=== PATIENT | male | born 1950 | race Caucasian/White ===

== ENCOUNTER 2017-09-29 15:55 | Inpatient (IN) | payer MEDICARE, OTHER ==
[2017-09-29 16:42] LABS: ADD MAN DIFF? NO
[2017-09-29 16:47] LABS: WHITE BLOOD COUNT 6.6 10^3/ul (4.8-10.8)
[2017-09-29 16:47] LABS: BASOPHILS % 0.6 % (0.0-2.0); EOSINOPHILS # 0.1 10^3/ul (0.0-0.5); HEMATOCRIT 29.1 % (42.0-52.0); HEMOGLOBIN 9.2 g/dl (14.0-18.0); LYMPHOCYTES # 0.9 10^3/ul (0.8-2.9); LYMPHOCYTES % 13.6 % (15.0-51.0); MEAN CORPUSCULAR HEMOGLOBIN 26.7 pg (29.0-33.0); MEAN CORPUSCULAR HGB CONC 31.6 g/dl (32.0-37.0); MEAN CORPUSCULAR VOLUME 84.3 fl (82.0-101.0); MEAN PLATELET VOLUME 9.1 fl (7.4-10.4); MONOCYTE # 0.8 10^3/ul (0.3-0.9); MONOCYTES % 12.2 % (0.0-11.0); NEUTROPHIL # 4.7 10^3/ul (1.6-7.5); NEUTROPHILS % 71.1 % (39.0-77.0); PLATELET COUNT 192 10^3/UL (140-415); RED BLOOD COUNT 3.45 10^6/ul (4.70-6.10); RED CELL DISTRIBUTION WIDTH 19.3 % (11.5-14.5)
[2017-09-29 16:52] LABS: ADD UMIC YES; UR ASCORBIC ACID NEGATIVE (NEGATIVE); UR BILIRUBIN (Dip) NEGATIVE (NEGATIVE); UR BLOOD (Dip) 2+ mg/dL (NEGATIVE); UR CLARITY CLEAR (CLEAR); UR COLOR STRAW (YELLOW); UR GLUCOSE (Dip) NEGATIVE (NEGATIVE); UR KETONES (Dip) NEGATIVE (NEGATIVE); UR LEUKOCYTE ESTERASE (Dip) 2+ Leu/ul (NEGATIVE); UR NITRITE (Dip) NEGATIVE (NEGATIVE); UR RBC 7 /HPF (0-5); UR SPECIFIC GRAVITY (Dip) 1.005 (1.003-1.030); UR TOTAL PROTEIN (Dip) NEGATIVE (NEGATIVE); UR UROBILINOGEN (Dip) NEGATIVE (NEGATIVE); UR WBC 49 /HPF (0-5)
[2017-09-29 17:14] LABS: ANION GAP 13 (8-16); BLOOD UREA NITROGEN 29 mg/dl (7-20); CALCIUM 8.6 mg/dl (8.4-10.2); CARBON DIOXIDE 27 mmol/L (21-31); CHLORIDE 100 mmol/L (97-110); CREATININE 1.06 mg/dl (0.61-1.24); GLUCOSE 146 mg/dl (70-220); POTASSIUM 4.7 mmol/L (3.5-5.1); SODIUM 135 mmol/L (135-144)
[2017-09-29] MEDS: DIPHTH/TET/ACEL PERTUSS (ADULT) 0.5 ML VIAL IM* (17:58)
[2017-09-29] MEDS: ALBUTEROL 0.5% (NEB) 2.5 MG/0.5 ML AMP INH (18:28)
[2017-09-29] MEDS: FUROSEMIDE 40 MG INJ IV (18:35)
[2017-09-29] MEDS: HYDROmorphONE 0.5 MG/0.5 ML SYG IV (18:36)
[2017-09-29] MEDS ORDERED: ACETAMINOPHEN 325 MG TAB PO (20:00)
[2017-09-29] MEDS ORDERED: ONDANSETRON 4 MG INJ IV (20:00)
[2017-09-29] MEDS: BACITRACIN 0.9 GM OINT TOP (20:41)
[2017-09-29] MEDS ORDERED: QUETIAPINE 25 MG TAB PO (21:00)
[2017-09-29] MEDS: LORAZEPAM 2 MG INJ IV (21:04)
[2017-09-29 21:15] LABS: TROPONIN-I < 0.012 ng/ml (0.00-0.12)
[2017-09-29] MEDS ORDERED: HALOPERIDOL 5 MG INJ (21:16)
[2017-09-29] MEDS: HALOPERIDOL 5 MG INJ IM ×2 (21:32→22:39)
[2017-09-29] MEDS: DIPHENHYDRAMINE 50 MG INJ IV (22:12)
[2017-09-30] MEDS: LORAZEPAM 2 MG INJ IV ×2 (01:10→10:08)
[2017-09-30] MEDS: LORAZEPAM 2 MG INJ IM (04:38)
[2017-09-30] MEDS ORDERED: NACL 0.9% 3 ML SYG IV (06:30)
[2017-09-30] MEDS ORDERED: DOCUSATE SODIUM 100 MG CAP PO (06:30)
[2017-09-30] MEDS: FUROSEMIDE 20 MG INJ IV (09:25)
[2017-09-30] MEDS: FAMOTIDINE 20 MG INJ IV ×2 (09:25→21:42)
[2017-09-30] MEDS: ALBUTEROL/IPRATROPIUM (NEB) 3 ML AMP HHN ×3 (09:47→22:19)
[2017-09-30] MEDS ORDERED: PROVENTIL HFA 6.7GM INHALER INH (17:30)
[2017-09-30] MEDS ORDERED: ALBUTEROL/IPRATROPIUM (NEB) 3 ML AMP INH (17:30)
[2017-09-30] MEDS ORDERED: GLUCOSE GEL 15 GRAM TUBE PO ×2 (18:00)
[2017-09-30] MEDS ORDERED: DEXTROSE 50% 50 ML SYRINGE IV ×2 (18:00)
[2017-09-30] MEDS ORDERED: ALBUTEROL HFA 8 GM INHALER INH (18:00)
[2017-09-30] MEDS ORDERED: GLUCOSE GEL 15 GRAM TUBE BUCCAL (18:00)
[2017-09-30] MEDS ORDERED: GLUCAGON 1 MG INJ IM (18:00)
[2017-09-30] MEDS: FUROSEMIDE 40 MG INJ IV (18:07)
[2017-09-30] MEDS: HYDROmorphONE 0.5 MG/0.5 ML SYG IV (18:16)
[2017-09-30] MEDS: INSULIN ASPART [NOVOLOG] 3 ML PEN SC ×3 (18:24→22:52)
[2017-09-30 18:40] LABS: CREATINE KINASE 37 IU/L (23-200)
[2017-09-30 18:51] LABS: CK INDEX 3.2
[2017-09-30 18:52] LABS: CK-MB 1.18 ng/ml (0.0-2.4); TROPONIN-I < 0.012 ng/ml (0.00-0.12)
[2017-09-30] MEDS: GUAIFENESIN/DM 5ML CUP PO (21:41)
[2017-09-30] MEDS: GABAPENTIN 100 MG CAP PO (21:42)
[2017-09-30] MEDS: ATORVASTATIN 10 MG TAB PO (21:42)
[2017-10-01] MEDS: ALBUTEROL/IPRATROPIUM (NEB) 3 ML AMP HHN ×9 (00:57→20:05)
[2017-10-01] MEDS: LORAZEPAM 2 MG INJ IV ×2 (01:15→10:38)
[2017-10-01 01:49] LABS: CREATINE KINASE 38 IU/L (23-200)
[2017-10-01 01:58] LABS: CK INDEX 3.1; TROPONIN-I 0.014 ng/ml (0.00-0.12)
[2017-10-01 01:59] LABS: CK-MB 1.17 ng/ml (0.0-2.4)
[2017-10-01] MEDS: ACCU-CHEK XX (02:42)
[2017-10-01] MEDS: HYDROmorphONE 0.5 MG/0.5 ML SYG IV ×5 (02:43→22:58)
[2017-10-01] MEDS ORDERED: PENDING SANTYL ORDER FOR WOUND CARE XX (04:00)
[2017-10-01] MEDS: FUROSEMIDE 40 MG INJ IV ×2 (06:40→17:55)
[2017-10-01 07:19] LABS: CHOLESTEROL 58 mg/dl (100-200)
[2017-10-01 07:19] LABS: CHOL/HDL RATIO 2.2 RATIO; HDL CHOLESTEROL 26 mg/dl (30-78); LDL CHOLESTEROL,CALCULATED 23 mg/dl; TRIGLYCERIDES 44 mg/dl (0-149)
[2017-10-01] MEDS: INSULIN ASPART [NOVOLOG] 3 ML PEN SC ×4 (07:51→21:49)
[2017-10-01] MEDS: BENAZEPRIL 10 MG TAB PO (08:25)
[2017-10-01] MEDS: MULTIVITAMINS THERAPEUTIC TAB PO (08:25)
[2017-10-01] MEDS: GABAPENTIN 100 MG CAP PO ×2 (08:25→21:44)
[2017-10-01] MEDS: ASPIRIN (EC) 81 MG TAB PO (08:25)
[2017-10-01] MEDS: CLOPIDOGREL 75 MG TAB PO (08:25)
[2017-10-01] MEDS: TAMSULOSIN (SR) 0.4 MG CAP PO (08:26)
[2017-10-01] MEDS: FAMOTIDINE 20 MG INJ IV ×2 (08:26→21:45)
[2017-10-01] MEDS: ASCORBIC ACID 500 MG TAB PO (08:27)
[2017-10-01] MEDS: HALOPERIDOL 5 MG INJ IM (11:30)
[2017-10-01] MEDS: ATORVASTATIN 10 MG TAB PO (21:44)
[2017-10-01] MEDS: ZOLPIDEM 5 MG TAB PO (21:53)
[2017-10-02] MEDS: ALBUTEROL/IPRATROPIUM (NEB) 3 ML AMP HHN ×6 (02:00→20:18)
[2017-10-02] MEDS: GUAIFENESIN/DM 5ML CUP PO (03:08)
[2017-10-02] MEDS: HYDROmorphONE 0.5 MG/0.5 ML SYG IV ×5 (03:08→20:50)
[2017-10-02] MEDS: ACCU-CHEK XX (03:09)
[2017-10-02] MEDS: FUROSEMIDE 40 MG INJ IV ×2 (05:38→17:11)
[2017-10-02] MEDS: INSULIN ASPART [NOVOLOG] 3 ML PEN SC ×4 (07:57→20:44)
[2017-10-02] MEDS: FAMOTIDINE 20 MG INJ IV ×3 (08:01→20:53)
[2017-10-02] MEDS: TAMSULOSIN (SR) 0.4 MG CAP PO (08:04)
[2017-10-02] MEDS: GABAPENTIN 100 MG CAP PO ×2 (08:04→20:38)
[2017-10-02] MEDS: MULTIVITAMINS THERAPEUTIC TAB PO (08:04)
[2017-10-02] MEDS: CLOPIDOGREL 75 MG TAB PO (08:04)
[2017-10-02] MEDS: BENAZEPRIL 10 MG TAB PO (08:04)
[2017-10-02] MEDS: ASCORBIC ACID 500 MG TAB PO (08:05)
[2017-10-02] MEDS: ASPIRIN (EC) 81 MG TAB PO (08:05)
[2017-10-02 08:42] LABS: ADD MAN DIFF? NO
[2017-10-02 08:47] LABS: BASOPHIL # 0.1 10^3/ul (0.0-0.1); BASOPHILS % 0.6 % (0.0-2.0); EOSINOPHILS # 0.4 10^3/ul (0.0-0.5); EOSINOPHILS % 3.8 % (0.0-7.0); HEMATOCRIT 29.5 % (42.0-52.0); HEMOGLOBIN 9.2 g/dl (14.0-18.0); LYMPHOCYTES % 11.1 % (15.0-51.0); MEAN CORPUSCULAR HEMOGLOBIN 26.1 pg (29.0-33.0); MEAN CORPUSCULAR HGB CONC 31.2 g/dl (32.0-37.0); MEAN CORPUSCULAR VOLUME 83.6 fl (82.0-101.0); MONOCYTES % 10.6 % (0.0-11.0); NEUTROPHIL # 6.8 10^3/ul (1.6-7.5); NEUTROPHILS % 73.5 % (39.0-77.0); PLATELET COUNT 211 10^3/UL (140-415); RED BLOOD COUNT 3.53 10^6/ul (4.70-6.10); RED CELL DISTRIBUTION WIDTH 19.5 % (11.5-14.5)
[2017-10-02 08:47] LABS: WHITE BLOOD COUNT 9.3 10^3/ul (4.8-10.8)
[2017-10-02 09:03] LABS: ANION GAP 10 (8-16); BLOOD UREA NITROGEN 20 mg/dl (7-20); CALCIUM 8.9 mg/dl (8.4-10.2); CARBON DIOXIDE 34 mmol/L (21-31); CHLORIDE 97 mmol/L (97-110); GLUCOSE 174 mg/dl (70-220); POTASSIUM 3.9 mmol/L (3.5-5.1); SODIUM 137 mmol/L (135-144)
[2017-10-02 09:04] LABS: MAGNESIUM 1.6 mg/dl (1.7-2.5)
[2017-10-02 09:04] LABS: PHOSPHORUS 3.1 mg/dl (2.5-4.9)
[2017-10-02] MEDS: MAGNESIUM SULFATE 2 GM/50 ML 50 ML IVPB (11:14)
[2017-10-02] MEDS: LORAZEPAM 2 MG INJ IV (12:28)
[2017-10-02] MEDS: ATORVASTATIN 10 MG TAB PO (20:37)
[2017-10-02] MEDS: INSULIN GLARGINE [LANtus] 3 ML PEN SC (20:56)
[2017-10-03] MEDS: ALBUTEROL/IPRATROPIUM (NEB) 3 ML AMP HHN ×6 (00:47→20:45)
[2017-10-03] MEDS: ACCU-CHEK XX (00:50)
[2017-10-03] MEDS: HYDROmorphONE 0.5 MG/0.5 ML SYG IV ×5 (00:50→23:05)
[2017-10-03] MEDS: FUROSEMIDE 40 MG INJ IV ×2 (04:44→17:55)
[2017-10-03 07:45] LABS: ADD MAN DIFF? NO
[2017-10-03 07:50] LABS: BASOPHIL # 0.1 10^3/ul (0.0-0.1); BASOPHILS % 0.5 % (0.0-2.0); EOSINOPHILS # 0.4 10^3/ul (0.0-0.5); EOSINOPHILS % 3.4 % (0.0-7.0); HEMATOCRIT 32.8 % (42.0-52.0); HEMOGLOBIN 10.2 g/dl (14.0-18.0); LYMPHOCYTES # 1.4 10^3/ul (0.8-2.9); LYMPHOCYTES % 11.3 % (15.0-51.0); MEAN CORPUSCULAR HEMOGLOBIN 25.9 pg (29.0-33.0); MEAN CORPUSCULAR HGB CONC 31.1 g/dl (32.0-37.0); MEAN CORPUSCULAR VOLUME 83.2 fl (82.0-101.0); MEAN PLATELET VOLUME 8.7 fl (7.4-10.4); MONOCYTE # 1.2 10^3/ul (0.3-0.9); MONOCYTES % 9.6 % (0.0-11.0); NEUTROPHIL # 9.3 10^3/ul (1.6-7.5); NEUTROPHILS % 74.6 % (39.0-77.0); PLATELET COUNT 242 10^3/UL (140-415); RED BLOOD COUNT 3.94 10^6/ul (4.70-6.10); RED CELL DISTRIBUTION WIDTH 19.2 % (11.5-14.5)
[2017-10-03 07:50] LABS: WHITE BLOOD COUNT 12.4 10^3/ul (4.8-10.8)
[2017-10-03] MEDS: INSULIN ASPART [NOVOLOG] 3 ML PEN SC ×4 (07:55→21:25)
[2017-10-03 08:16] LABS: ANION GAP 10 (8-16); BLOOD UREA NITROGEN 18 mg/dl (7-20); CALCIUM 8.9 mg/dl (8.4-10.2); CARBON DIOXIDE 34 mmol/L (21-31); CHLORIDE 95 mmol/L (97-110); GLUCOSE 105 mg/dl (70-220); POTASSIUM 3.3 mmol/L (3.5-5.1); SODIUM 136 mmol/L (135-144)
[2017-10-03 08:19] LABS: MAGNESIUM 1.8 mg/dl (1.7-2.5)
[2017-10-03 08:19] LABS: PHOSPHORUS 3.3 mg/dl (2.5-4.9)
[2017-10-03] MEDS: ASPIRIN (EC) 81 MG TAB PO (08:27)
[2017-10-03] MEDS: BENAZEPRIL 10 MG TAB PO (08:27)
[2017-10-03] MEDS: TAMSULOSIN (SR) 0.4 MG CAP PO (08:27)
[2017-10-03] MEDS: CLOPIDOGREL 75 MG TAB PO (08:27)
[2017-10-03] MEDS: MULTIVITAMINS THERAPEUTIC TAB PO (08:28)
[2017-10-03] MEDS: ASCORBIC ACID 500 MG TAB PO (08:28)
[2017-10-03] MEDS: GABAPENTIN 100 MG CAP PO ×2 (08:28→21:07)
[2017-10-03] MEDS: POTASSIUM CHLORIDE (SR) 20 MEQ TAB PO (21:07)
[2017-10-03] MEDS: FAMOTIDINE 20 MG INJ IV (21:07)
[2017-10-03] MEDS: ZOLPIDEM 5 MG TAB PO (21:07)
[2017-10-03] MEDS: POTASSIUM CHLORIDE (SR) 10 MEQ TAB PO (21:07)
[2017-10-03] MEDS: ATORVASTATIN 10 MG TAB PO (21:08)
[2017-10-03] MEDS: INSULIN GLARGINE [LANtus] 3 ML PEN SC (21:24)
[2017-10-03] MEDS: MAGNESIUM SULFATE 2 GM/50 ML 50 ML IVPB (23:05)
[2017-10-04] MEDS: ALBUTEROL/IPRATROPIUM (NEB) 3 ML AMP HHN ×7 (01:00→21:45)
[2017-10-04] MEDS: ACCU-CHEK XX (02:00)
[2017-10-04] MEDS: LORAZEPAM 2 MG INJ IV ×2 (04:05→15:49)
[2017-10-04] MEDS: FUROSEMIDE 40 MG INJ IV ×2 (05:35→18:39)
[2017-10-04] MEDS: INSULIN ASPART [NOVOLOG] 3 ML PEN SC ×4 (07:55→20:31)
[2017-10-04 08:24] LABS: ADD MAN DIFF? NO
[2017-10-04 08:28] LABS: BASOPHIL # 0.1 10^3/ul (0.0-0.1); BASOPHILS % 0.6 % (0.0-2.0); EOSINOPHILS # 0.5 10^3/ul (0.0-0.5); EOSINOPHILS % 4.1 % (0.0-7.0); HEMATOCRIT 34.2 % (42.0-52.0); HEMOGLOBIN 10.6 g/dl (14.0-18.0); LYMPHOCYTES # 1.5 10^3/ul (0.8-2.9); LYMPHOCYTES % 11.5 % (15.0-51.0); MEAN CORPUSCULAR HEMOGLOBIN 26.2 pg (29.0-33.0); MEAN CORPUSCULAR VOLUME 84.4 fl (82.0-101.0); MEAN PLATELET VOLUME 8.8 fl (7.4-10.4); MONOCYTE # 1.3 10^3/ul (0.3-0.9); MONOCYTES % 10.3 % (0.0-11.0); NEUTROPHIL # 9.5 10^3/ul (1.6-7.5); PLATELET COUNT 244 10^3/UL (140-415); RED BLOOD COUNT 4.05 10^6/ul (4.70-6.10); RED CELL DISTRIBUTION WIDTH 19.3 % (11.5-14.5)
[2017-10-04 08:45] LABS: PHOSPHORUS 3.4 mg/dl (2.5-4.9)
[2017-10-04 08:45] LABS: MAGNESIUM 2.2 mg/dl (1.7-2.5)
[2017-10-04 08:47] LABS: ANION GAP 14 (8-16); BLOOD UREA NITROGEN 22 mg/dl (7-20); CALCIUM 8.4 mg/dl (8.4-10.2); CARBON DIOXIDE 32 mmol/L (21-31); CHLORIDE 98 mmol/L (97-110); CREATININE 1.08 mg/dl (0.61-1.24); GLUCOSE 144 mg/dl (70-220); POTASSIUM 3.8 mmol/L (3.5-5.1); SODIUM 140 mmol/L (135-144)
[2017-10-04] MEDS: POTASSIUM CHLORIDE (SR) 10 MEQ TAB PO ×3 (08:57→20:23)
[2017-10-04] MEDS: GABAPENTIN 100 MG CAP PO ×3 (08:57→20:23)
[2017-10-04] MEDS: FAMOTIDINE 20 MG INJ IV ×2 (08:57→20:23)
[2017-10-04] MEDS: MULTIVITAMINS THERAPEUTIC TAB PO ×2 (08:58→09:00)
[2017-10-04] MEDS: ASCORBIC ACID 500 MG TAB PO ×2 (08:58→09:00)
[2017-10-04] MEDS: MAGNESIUM OXIDE 400 MG TAB PO ×2 (08:58→09:00)
[2017-10-04] MEDS: BENAZEPRIL 10 MG TAB PO ×2 (08:58→09:00)
[2017-10-04] MEDS: ASPIRIN (EC) 81 MG TAB PO ×2 (08:58→09:00)
[2017-10-04] MEDS: TAMSULOSIN (SR) 0.4 MG CAP PO ×2 (08:59→09:00)
[2017-10-04] MEDS: CLOPIDOGREL 75 MG TAB PO ×2 (08:59→09:00)
[2017-10-04] MEDS: HYDROmorphONE 0.5 MG/0.5 ML SYG IV ×4 (10:00→22:55)
[2017-10-04] MEDS ORDERED: LEVOFLOXACIN 500MG/D5W (PMX) 100 ML IVPB (15:30)
[2017-10-04] MEDS: CEFTRIAXONE 1 GM/50 ML (PMX) 50 ML IVPB (16:48)
[2017-10-04] MEDS: ATORVASTATIN 10 MG TAB PO (20:23)
[2017-10-04] MEDS: INSULIN GLARGINE [LANtus] 3 ML PEN SC (20:30)
[2017-10-05] MEDS: ALBUTEROL/IPRATROPIUM (NEB) 3 ML AMP HHN ×6 (00:27→20:47)
[2017-10-05] MEDS: ACCU-CHEK XX (02:00)
[2017-10-05] MEDS: HYDROmorphONE 0.5 MG/0.5 ML SYG IV ×3 (05:24→19:40)
[2017-10-05] MEDS: FUROSEMIDE 40 MG INJ IV ×2 (05:25→18:04)
[2017-10-05 08:16] LABS: ADD MAN DIFF? NO
[2017-10-05 08:18] LABS: WHITE BLOOD COUNT 12.5 10^3/ul (4.8-10.8)
[2017-10-05 08:18] LABS: BASOPHIL # 0.1 10^3/ul (0.0-0.1); BASOPHILS % 0.6 % (0.0-2.0); EOSINOPHILS # 0.7 10^3/ul (0.0-0.5); EOSINOPHILS % 5.2 % (0.0-7.0); HEMOGLOBIN 10.6 g/dl (14.0-18.0); LYMPHOCYTES # 1.6 10^3/ul (0.8-2.9); MEAN CORPUSCULAR HEMOGLOBIN 26.2 pg (29.0-33.0); MEAN CORPUSCULAR HGB CONC 31.2 g/dl (32.0-37.0); MEAN PLATELET VOLUME 8.5 fl (7.4-10.4); MONOCYTES % 7.9 % (0.0-11.0); NEUTROPHIL # 9.1 10^3/ul (1.6-7.5); NEUTROPHILS % 72.7 % (39.0-77.0); PLATELET COUNT 223 10^3/UL (140-415); RED BLOOD COUNT 4.05 10^6/ul (4.70-6.10); RED CELL DISTRIBUTION WIDTH 19.3 % (11.5-14.5)
[2017-10-05] MEDS: INSULIN ASPART [NOVOLOG] 3 ML PEN SC ×4 (08:49→20:36)
[2017-10-05] MEDS: TAMSULOSIN (SR) 0.4 MG CAP PO (09:30)
[2017-10-05] MEDS: ASCORBIC ACID 500 MG TAB PO (09:30)
[2017-10-05] MEDS: MAGNESIUM OXIDE 400 MG TAB PO (09:31)
[2017-10-05] MEDS: BENAZEPRIL 10 MG TAB PO (09:31)
[2017-10-05] MEDS: GABAPENTIN 100 MG CAP PO ×2 (09:31→20:24)
[2017-10-05] MEDS: CLOPIDOGREL 75 MG TAB PO (09:32)
[2017-10-05] MEDS: MULTIVITAMINS THERAPEUTIC TAB PO (09:32)
[2017-10-05] MEDS: POTASSIUM CHLORIDE (SR) 10 MEQ TAB PO ×2 (09:32→20:27)
[2017-10-05] MEDS: ASPIRIN (EC) 81 MG TAB PO (09:32)
[2017-10-05] MEDS: FAMOTIDINE 20 MG INJ IV ×2 (09:32→20:27)
[2017-10-05] MEDS: SPIRONOLACTONE 25 MG TAB PO (09:33)
[2017-10-05] MEDS: COLLAGENASE 30 GM TUBE TOP (09:39)
[2017-10-05] MEDS: CEFTRIAXONE 1 GM/50 ML (PMX) 50 ML IVPB (17:57)
[2017-10-05] MEDS: ATORVASTATIN 10 MG TAB PO (20:24)
[2017-10-05] MEDS: ZOLPIDEM 5 MG TAB PO (20:24)
[2017-10-05] MEDS: INSULIN GLARGINE [LANtus] 3 ML PEN SC (20:36)
[2017-10-05] MEDS: LORAZEPAM 2 MG INJ IV ×2 (22:33→23:32)
[2017-10-05] MEDS ORDERED: LORAZEPAM 2 MG INJ IV (23:00)
[2017-10-06] MEDS: ALBUTEROL/IPRATROPIUM (NEB) 3 ML AMP HHN ×6 (01:00→21:00)
[2017-10-06] MEDS: ACCU-CHEK XX (02:00)
[2017-10-06] MEDS: HYDROmorphONE 0.5 MG/0.5 ML SYG IV ×4 (02:04→23:33)
[2017-10-06] MEDS: FUROSEMIDE 40 MG INJ IV ×2 (05:56→17:45)
[2017-10-06] MEDS: INSULIN ASPART [NOVOLOG] 3 ML PEN SC ×4 (07:55→20:52)
[2017-10-06] MEDS: SPIRONOLACTONE 25 MG TAB PO (09:00)
[2017-10-06] MEDS: BENAZEPRIL 10 MG TAB PO (09:00)
[2017-10-06] MEDS: MULTIVITAMINS THERAPEUTIC TAB PO (09:23)
[2017-10-06] MEDS: FAMOTIDINE 20 MG INJ IV ×2 (09:23→20:17)
[2017-10-06] MEDS: GABAPENTIN 100 MG CAP PO ×2 (09:24→20:16)
[2017-10-06] MEDS: ASPIRIN (EC) 81 MG TAB PO (09:24)
[2017-10-06] MEDS: ASCORBIC ACID 500 MG TAB PO (09:24)
[2017-10-06] MEDS: MAGNESIUM OXIDE 400 MG TAB PO (09:24)
[2017-10-06] MEDS: CLOPIDOGREL 75 MG TAB PO (09:24)
[2017-10-06] MEDS: TAMSULOSIN (SR) 0.4 MG CAP PO (09:24)
[2017-10-06] MEDS: POTASSIUM CHLORIDE (SR) 10 MEQ TAB PO ×2 (09:30→20:16)
[2017-10-06] MEDS: COLLAGENASE 30 GM TUBE TOP (09:35)
[2017-10-06] MEDS: CEFTRIAXONE 1 GM/50 ML (PMX) 50 ML IVPB (17:46)
[2017-10-06] MEDS: ATORVASTATIN 10 MG TAB PO (20:16)
[2017-10-06] MEDS: ZOLPIDEM 5 MG TAB PO (20:16)
[2017-10-06] MEDS: INSULIN GLARGINE [LANtus] 3 ML PEN SC (20:51)
[2017-10-07] MEDS: ALBUTEROL/IPRATROPIUM (NEB) 3 ML AMP HHN ×6 (01:00→20:41)
[2017-10-07] MEDS: ACCU-CHEK XX (02:00)
[2017-10-07] MEDS: HYDROmorphONE 0.5 MG/0.5 ML SYG IV ×4 (04:19→20:53)
[2017-10-07] MEDS: FUROSEMIDE 40 MG INJ IV ×2 (06:00→17:15)
[2017-10-07 07:25] LABS: ADD MAN DIFF? NO
[2017-10-07 07:28] LABS: WHITE BLOOD COUNT 14.5 10^3/ul (4.8-10.8)
[2017-10-07 07:28] LABS: BASOPHIL # 0.1 10^3/ul (0.0-0.1); BASOPHILS % 0.7 % (0.0-2.0); EOSINOPHILS # 0.6 10^3/ul (0.0-0.5); HEMATOCRIT 31.4 % (42.0-52.0); LYMPHOCYTES # 1.9 10^3/ul (0.8-2.9); MEAN CORPUSCULAR HEMOGLOBIN 26.6 pg (29.0-33.0); MEAN CORPUSCULAR HGB CONC 31.8 g/dl (32.0-37.0); MEAN CORPUSCULAR VOLUME 83.5 fl (82.0-101.0); MEAN PLATELET VOLUME 8.8 fl (7.4-10.4); MONOCYTE # 1.3 10^3/ul (0.3-0.9); MONOCYTES % 8.7 % (0.0-11.0); NEUTROPHIL # 10.6 10^3/ul (1.6-7.5); NEUTROPHILS % 72.8 % (39.0-77.0); PLATELET COUNT 200 10^3/UL (140-415); RED BLOOD COUNT 3.76 10^6/ul (4.70-6.10); RED CELL DISTRIBUTION WIDTH 19.2 % (11.5-14.5)
[2017-10-07 07:54] LABS: ALANINE AMINOTRANSFERASE 40 IU/L (13-69); ALBUMIN 2.7 g/dl (3.3-4.9); ALBUMIN/GLOBULIN RATIO 0.79; ALKALINE PHOSPHATASE 160 IU/L (42-121); ANION GAP 13 (8-16); ASPARTATE AMINO TRANSFERASE 22 IU/L (15-46); BLOOD UREA NITROGEN 27 mg/dl (7-20); CALCIUM 8.2 mg/dl (8.4-10.2); CARBON DIOXIDE 28 mmol/L (21-31); CHLORIDE 99 mmol/L (97-110); CREATININE 1.06 mg/dl (0.61-1.24); GLUCOSE 129 mg/dl (70-220); POTASSIUM 4.4 mmol/L (3.5-5.1); SODIUM 136 mmol/L (135-144); TOTAL PROTEIN 6.1 g/dl (6.1-8.1)
[2017-10-07] MEDS: INSULIN ASPART [NOVOLOG] 3 ML PEN SC ×4 (07:55→20:55)
[2017-10-07] MEDS: BENAZEPRIL 10 MG TAB PO (09:00)
[2017-10-07] MEDS: CLOPIDOGREL 75 MG TAB PO (09:43)
[2017-10-07] MEDS: MULTIVITAMINS THERAPEUTIC TAB PO (09:43)
[2017-10-07] MEDS: ASCORBIC ACID 500 MG TAB PO (09:43)
[2017-10-07] MEDS: FAMOTIDINE 20 MG INJ IV ×2 (09:43→20:55)
[2017-10-07] MEDS: MAGNESIUM OXIDE 400 MG TAB PO (09:44)
[2017-10-07] MEDS: POTASSIUM CHLORIDE (SR) 10 MEQ TAB PO ×2 (09:44→20:55)
[2017-10-07] MEDS: ASPIRIN (EC) 81 MG TAB PO (09:44)
[2017-10-07] MEDS: SPIRONOLACTONE 25 MG TAB PO (09:44)
[2017-10-07] MEDS: GABAPENTIN 100 MG CAP PO ×2 (09:44→20:55)
[2017-10-07] MEDS: TAMSULOSIN (SR) 0.4 MG CAP PO (09:44)
[2017-10-07] MEDS: COLLAGENASE 30 GM TUBE TOP (09:47)
[2017-10-07 12:29] LABS: ADD UMIC YES; UR ASCORBIC ACID 40 mg/dL (NEGATIVE); UR BACTERIA FEW /HPF (NONE SEEN); UR BILIRUBIN (Dip) NEGATIVE (NEGATIVE); UR BLOOD (Dip) 2+ mg/dL (NEGATIVE); UR BUDDING YEAST MANY /HPF (NONE SEEN); UR CLARITY SLIGHTLY CLOUDY (CLEAR); UR COLOR YELLOW (YELLOW); UR GLUCOSE (Dip) NEGATIVE (NEGATIVE); UR KETONES (Dip) NEGATIVE (NEGATIVE); UR LEUKOCYTE ESTERASE (Dip) 3+ Leu/ul (NEGATIVE); UR NITRITE (Dip) NEGATIVE (NEGATIVE); UR RBC 54 /HPF (0-5); UR SPECIFIC GRAVITY (Dip) 1.009 (1.003-1.030); UR TOTAL PROTEIN (Dip) 1+ mg/dl (NEGATIVE); UR UROBILINOGEN (Dip) NEGATIVE (NEGATIVE); UR WBC 48 /HPF (0-5)
[2017-10-07] MEDS: CEFTRIAXONE 1 GM/50 ML (PMX) 50 ML IVPB (16:22)
[2017-10-07] MEDS: INSULIN GLARGINE [LANtus] 3 ML PEN SC (20:16)
[2017-10-07] MEDS: ZOLPIDEM 5 MG TAB PO (20:55)
[2017-10-07] MEDS: ATORVASTATIN 10 MG TAB PO (20:55)
[2017-10-08] MEDS: ALBUTEROL/IPRATROPIUM (NEB) 3 ML AMP HHN ×6 (01:00→21:00)
[2017-10-08] MEDS: ACCU-CHEK XX (02:00)
[2017-10-08] MEDS: HYDROmorphONE 0.5 MG/0.5 ML SYG IV ×3 (04:14→13:49)
[2017-10-08] MEDS: ACETAMINOPHEN 325 MG TAB PO ×2 (05:27→16:40)
[2017-10-08] MEDS: FUROSEMIDE 40 MG INJ IV (05:29)
[2017-10-08] MEDS: INSULIN ASPART [NOVOLOG] 3 ML PEN SC ×4 (07:49→20:48)
[2017-10-08] MEDS: FAMOTIDINE 20 MG INJ IV ×2 (08:36→20:51)
[2017-10-08] MEDS: GABAPENTIN 100 MG CAP PO ×2 (08:37→20:50)
[2017-10-08] MEDS: MULTIVITAMINS THERAPEUTIC TAB PO (08:37)
[2017-10-08] MEDS: TAMSULOSIN (SR) 0.4 MG CAP PO (08:37)
[2017-10-08] MEDS: MAGNESIUM OXIDE 400 MG TAB PO (08:37)
[2017-10-08] MEDS: CLOPIDOGREL 75 MG TAB PO (08:37)
[2017-10-08] MEDS: ASCORBIC ACID 500 MG TAB PO (08:37)
[2017-10-08] MEDS: ASPIRIN (EC) 81 MG TAB PO (08:38)
[2017-10-08] MEDS: POTASSIUM CHLORIDE (SR) 10 MEQ TAB PO ×2 (08:38→20:50)
[2017-10-08] MEDS: BENAZEPRIL 10 MG TAB PO (08:39)
[2017-10-08] MEDS: COLLAGENASE 30 GM TUBE TOP (08:40)
[2017-10-08] MEDS: SPIRONOLACTONE 25 MG TAB PO (08:40)
[2017-10-08] MEDS: FUROSEMIDE 40 MG TAB PO (08:42)
[2017-10-08] MEDS: CEFTRIAXONE 1 GM/50 ML (PMX) 50 ML IVPB (16:22)
[2017-10-08] MEDS: ZOLPIDEM 5 MG TAB PO (20:50)
[2017-10-08] MEDS: ATORVASTATIN 10 MG TAB PO (20:51)
[2017-10-08] MEDS: INSULIN GLARGINE [LANtus] 3 ML PEN SC (21:01)
[2017-10-09] MEDS: ALBUTEROL/IPRATROPIUM (NEB) 3 ML AMP HHN ×6 (00:23→21:00)
[2017-10-09] MEDS: ACCU-CHEK XX (02:00)
[2017-10-09] MEDS: INSULIN ASPART [NOVOLOG] 3 ML PEN SC ×4 (07:35→20:41)
[2017-10-09] MEDS: ASPIRIN (EC) 81 MG TAB PO (08:28)
[2017-10-09] MEDS: MULTIVITAMINS THERAPEUTIC TAB PO (08:28)
[2017-10-09] MEDS: FAMOTIDINE 20 MG INJ IV ×2 (08:28→20:37)
[2017-10-09] MEDS: GABAPENTIN 100 MG CAP PO ×2 (08:28→20:37)
[2017-10-09] MEDS: ASCORBIC ACID 500 MG TAB PO (08:29)
[2017-10-09] MEDS: TAMSULOSIN (SR) 0.4 MG CAP PO (08:29)
[2017-10-09] MEDS: CLOPIDOGREL 75 MG TAB PO (08:30)
[2017-10-09] MEDS: BENAZEPRIL 10 MG TAB PO (08:30)
[2017-10-09 08:31] LABS: ANION GAP 13 (8-16); BLOOD UREA NITROGEN 26 mg/dl (7-20); CALCIUM 8.6 mg/dl (8.4-10.2); CARBON DIOXIDE 27 mmol/L (21-31); CHLORIDE 99 mmol/L (97-110); CREATININE 1.35 mg/dl (0.61-1.24); GLUCOSE 104 mg/dl (70-220); SODIUM 134 mmol/L (135-144)
[2017-10-09] MEDS: SPIRONOLACTONE 25 MG TAB PO (08:31)
[2017-10-09] MEDS: POTASSIUM CHLORIDE (SR) 10 MEQ TAB PO ×2 (08:31→20:36)
[2017-10-09] MEDS: MAGNESIUM OXIDE 400 MG TAB PO (08:31)
[2017-10-09] MEDS: FUROSEMIDE 40 MG TAB PO (08:31)
[2017-10-09] MEDS: COLLAGENASE 30 GM TUBE TOP (08:32)
[2017-10-09 08:46] LABS: POTASSIUM 5.2 mmol/L (3.5-5.1)
[2017-10-09] MEDS: CEFTRIAXONE 1 GM/50 ML (PMX) 50 ML IVPB (15:53)
[2017-10-09] MEDS: ACETAMINOPHEN 325 MG TAB PO (16:21)
[2017-10-09] MEDS: ZOLPIDEM 5 MG TAB PO ×2 (17:56→23:38)
[2017-10-09] MEDS: ATORVASTATIN 10 MG TAB PO (20:37)
[2017-10-09] MEDS: INSULIN GLARGINE [LANtus] 3 ML PEN SC (20:44)
[2017-10-09] MEDS: LORAZEPAM 2 MG INJ IV (22:23)
[2017-10-10] MEDS: ALBUTEROL/IPRATROPIUM (NEB) 3 ML AMP HHN ×6 (01:00→20:42)
[2017-10-10] MEDS: ACCU-CHEK XX (02:00)
[2017-10-10] MEDS: INSULIN ASPART [NOVOLOG] 3 ML PEN SC ×4 (07:55→20:35)
[2017-10-10] MEDS: FAMOTIDINE 20 MG INJ IV ×2 (09:21→20:37)
[2017-10-10] MEDS: CLOPIDOGREL 75 MG TAB PO (09:23)
[2017-10-10] MEDS: ASPIRIN (EC) 81 MG TAB PO (09:23)
[2017-10-10] MEDS: MULTIVITAMINS THERAPEUTIC TAB PO (09:23)
[2017-10-10] MEDS: SPIRONOLACTONE 25 MG TAB PO (09:24)
[2017-10-10] MEDS: GABAPENTIN 100 MG CAP PO ×2 (09:24→20:36)
[2017-10-10] MEDS: BENAZEPRIL 10 MG TAB PO (09:24)
[2017-10-10] MEDS: TAMSULOSIN (SR) 0.4 MG CAP PO (09:24)
[2017-10-10] MEDS: MAGNESIUM OXIDE 400 MG TAB PO (09:24)
[2017-10-10] MEDS: FUROSEMIDE 40 MG TAB PO (09:24)
[2017-10-10] MEDS: ASCORBIC ACID 500 MG TAB PO (09:29)
[2017-10-10] MEDS: COLLAGENASE 30 GM TUBE TOP (09:30)
[2017-10-10] MEDS: LORAZEPAM 2 MG INJ IV ×3 (09:39→21:14)
[2017-10-10] MEDS ORDERED: LORAZEPAM 2 MG INJ IM ×2 (11:00→11:13)
[2017-10-10] MEDS: FLUCONAZOLE 100 MG TAB PO ×2 (11:00→17:38)
[2017-10-10 13:38] LABS: ANION GAP 12 (8-16); BLOOD UREA NITROGEN 29 mg/dl (7-20); CALCIUM 8.8 mg/dl (8.4-10.2); CARBON DIOXIDE 25 mmol/L (21-31); CHLORIDE 100 mmol/L (97-110); CREATININE 1.18 mg/dl (0.61-1.24); GLUCOSE 219 mg/dl (70-220); POTASSIUM 4.9 mmol/L (3.5-5.1); SODIUM 132 mmol/L (135-144)
[2017-10-10] MEDS: ACETAMINOPHEN 325 MG TAB PO (18:30)
[2017-10-10] MEDS: INSULIN GLARGINE [LANtus] 3 ML PEN SC (20:34)
[2017-10-10] MEDS: ZOLPIDEM 5 MG TAB PO (20:36)
[2017-10-10] MEDS: ATORVASTATIN 10 MG TAB PO (20:36)
[2017-10-11] MEDS: ALBUTEROL/IPRATROPIUM (NEB) 3 ML AMP HHN ×6 (00:41→21:00)
[2017-10-11] MEDS: ACCU-CHEK XX (01:50)
[2017-10-11] MEDS: INSULIN ASPART [NOVOLOG] 3 ML PEN SC ×4 (07:55→20:30)
[2017-10-11] MEDS: TAMSULOSIN (SR) 0.4 MG CAP PO (09:33)
[2017-10-11] MEDS: LORAZEPAM 2 MG INJ IV ×2 (09:33→17:51)
[2017-10-11] MEDS: FAMOTIDINE 20 MG INJ IV ×2 (09:33→20:27)
[2017-10-11] MEDS: FLUCONAZOLE 100 MG TAB PO (09:33)
[2017-10-11] MEDS: FUROSEMIDE 40 MG TAB PO (09:34)
[2017-10-11] MEDS: BENAZEPRIL 10 MG TAB PO (09:34)
[2017-10-11] MEDS: ASCORBIC ACID 500 MG TAB PO (09:37)
[2017-10-11] MEDS: SPIRONOLACTONE 25 MG TAB PO (09:37)
[2017-10-11] MEDS: CLOPIDOGREL 75 MG TAB PO (09:37)
[2017-10-11] MEDS: MULTIVITAMINS THERAPEUTIC TAB PO (09:37)
[2017-10-11] MEDS: ASPIRIN (EC) 81 MG TAB PO (09:37)
[2017-10-11] MEDS: GABAPENTIN 100 MG CAP PO ×2 (09:37→20:27)
[2017-10-11] MEDS: COLLAGENASE 30 GM TUBE TOP (09:38)
[2017-10-11] MEDS: ACETAMINOPHEN 325 MG TAB PO (20:27)
[2017-10-11] MEDS: ATORVASTATIN 10 MG TAB PO (20:27)
[2017-10-11] MEDS: ZOLPIDEM 5 MG TAB PO (20:27)
[2017-10-11] MEDS: INSULIN GLARGINE [LANtus] 3 ML PEN SC (20:29)
[2017-10-12] MEDS: ALBUTEROL/IPRATROPIUM (NEB) 3 ML AMP HHN ×8 (00:12→20:05)
[2017-10-12] MEDS: ACCU-CHEK XX (02:00)
[2017-10-12] MEDS: BENAZEPRIL 10 MG TAB PO (08:26)
[2017-10-12] MEDS: ASCORBIC ACID 500 MG TAB PO (08:27)
[2017-10-12] MEDS: FUROSEMIDE 40 MG TAB PO (08:27)
[2017-10-12] MEDS: GABAPENTIN 100 MG CAP PO ×2 (08:27→20:10)
[2017-10-12] MEDS: ASPIRIN (EC) 81 MG TAB PO (08:28)
[2017-10-12] MEDS: MULTIVITAMINS THERAPEUTIC TAB PO (08:28)
[2017-10-12] MEDS: FAMOTIDINE 20 MG INJ IV ×2 (08:28→20:11)
[2017-10-12] MEDS: TAMSULOSIN (SR) 0.4 MG CAP PO (08:28)
[2017-10-12] MEDS: SPIRONOLACTONE 25 MG TAB PO (08:28)
[2017-10-12] MEDS: CLOPIDOGREL 75 MG TAB PO (08:28)
[2017-10-12] MEDS: COLLAGENASE 30 GM TUBE TOP (08:29)
[2017-10-12] MEDS: INSULIN ASPART [NOVOLOG] 3 ML PEN SC ×4 (08:33→20:20)
[2017-10-12] MEDS: LORAZEPAM 2 MG INJ IV (13:03)
[2017-10-12 13:32] LABS: ADD MAN DIFF? NO
[2017-10-12 13:35] LABS: ABNORMAL IP MESSAGE 1; BASOPHIL # 0.1 10^3/ul (0.0-0.1); BASOPHILS % 0.8 % (0.0-2.0); EOSINOPHILS # 0.3 10^3/ul (0.0-0.5); EOSINOPHILS % 2.2 % (0.0-7.0); HEMATOCRIT 35.2 % (42.0-52.0); HEMOGLOBIN 11.1 g/dl (14.0-18.0); LYMPHOCYTES % 12.8 % (15.0-51.0); MEAN CORPUSCULAR HEMOGLOBIN 26.2 pg (29.0-33.0); MEAN CORPUSCULAR HGB CONC 31.5 g/dl (32.0-37.0); MEAN PLATELET VOLUME 8.4 fl (7.4-10.4); MONOCYTE # 1.5 10^3/ul (0.3-0.9); NEUTROPHIL # 11.2 10^3/ul (1.6-7.5); PLATELET COUNT 197 10^3/UL (140-415); POSITIVE DIFF @See below; RED BLOOD COUNT 4.24 10^6/ul (4.70-6.10); RED CELL DISTRIBUTION WIDTH 19.4 % (11.5-14.5)
[2017-10-12 13:35] LABS: WHITE BLOOD COUNT 15.3 10^3/ul (4.8-10.8)
[2017-10-12] MEDS ORDERED: HYDROmorphONE 1 MG/ML SYG IV (16:15)
[2017-10-12] MEDS: HYDROmorphONE 1 MG/ML SYG IV (16:27)
[2017-10-12] MEDS ORDERED: HYDROmorphONE 0.5 MG/0.5 ML SYG IV (16:30)
[2017-10-12] MEDS: ATORVASTATIN 10 MG TAB PO (20:09)
[2017-10-12] MEDS: traMADol 50 MG TAB PO (20:10)
[2017-10-12] MEDS: INSULIN GLARGINE [LANtus] 3 ML PEN SC (20:13)
[2017-10-12] MEDS: ZOLPIDEM 5 MG TAB PO (22:54)
[2017-10-13] MEDS: ACCU-CHEK XX (01:13)
[2017-10-13] MEDS: traMADol 50 MG TAB PO ×2 (03:17→09:26)
[2017-10-13] MEDS: NITROGLYCERIN (SL) 0.4 MG TAB SL (04:10)
[2017-10-13] MEDS: ONDANSETRON 4 MG INJ IV (04:33)
[2017-10-13] MEDS: INSULIN ASPART [NOVOLOG] 3 ML PEN SC ×2 (08:01→12:21)
[2017-10-13] MEDS: FAMOTIDINE 20 MG INJ IV (08:03)
[2017-10-13] MEDS: BENAZEPRIL 10 MG TAB PO (08:04)
[2017-10-13] MEDS: ASPIRIN (EC) 81 MG TAB PO (08:04)
[2017-10-13] MEDS: SPIRONOLACTONE 25 MG TAB PO (08:04)
[2017-10-13] MEDS: TAMSULOSIN (SR) 0.4 MG CAP PO (08:04)
[2017-10-13] MEDS: GABAPENTIN 100 MG CAP PO (08:04)
[2017-10-13] MEDS: CLOPIDOGREL 75 MG TAB PO (08:04)
[2017-10-13] MEDS: MULTIVITAMINS THERAPEUTIC TAB PO (08:04)
[2017-10-13] MEDS: ASCORBIC ACID 500 MG TAB PO (08:05)
[2017-10-13] MEDS: FLUCONAZOLE 100 MG TAB PO (08:05)
[2017-10-13] MEDS: FUROSEMIDE 40 MG TAB PO (08:05)
[2017-10-13] MEDS: ALBUTEROL/IPRATROPIUM (NEB) 3 ML AMP HHN ×2 (09:00→13:00)
[2017-10-13] MEDS: COLLAGENASE 30 GM TUBE TOP (09:27)
== END 2017-10-13 17:17 | DRG 292 ==
LOC: TEL 10-01 14:56 → E/R 15:55 → TEL 19:48
PROVIDERS: Internal Medicine
DX: I50.23 Acute on chronic systolic (congestive) heart failure (principal); I42.9 Cardiomyopathy, unspecified; I47.2 Ventricular tachycardia; S09.90XA Unspecified injury of head, initial encounter; I48.91 Unspecified atrial fibrillation; I48.92 Unspecified atrial flutter; D64.9 Anemia, unspecified; E11.9 Type 2 diabetes mellitus without complications; K92.1 Melena; Z89.611 Acquired absence of right leg above knee; S81.812A Laceration without foreign body, left lower leg, initial encounter; S05.10XA Contusion of eyeball and orbital tissues, unspecified eye, initial encounter; E78.5 Hyperlipidemia, unspecified; Z93.3 Colostomy status; R10.9 Unspecified abdominal pain; E87.6 Hypokalemia; Z79.4 Long term (current) use of insulin; Y92.009 Unspecified place in unspecified non-institutional (private) residence as the place of occurrence of the external cause; W10.9XXA Fall (on) (from) unspecified stairs and steps, initial encounter
CPT/HCPCS: 36415; 70450; 71045; 72125; 72170; 73590; 80048; 80053; 80061; 81001; 82550; 82553; 82962; 83735; 84100; 84484; 85025; 87081; 87086; 90471; 90715; 93005; 93306; 94640; 94644; 94664; 96372; 96374; 96375; 96376; 99285-25; G0378; J1940